=== PATIENT | male | born 1990 | race Caucasian/White ===

== ENCOUNTER 2020-11-26 16:17 | Emergency (ER) | payer OTHER, SELFPAY ==
[2020-11-26 16:44] VITALS: BP 133/69; PULSE 62; RESP 16; TEMP 36.6; O2SAT 100
--- NOTE | 2020-11-26 16:45 | ED.EXTPRO ---
HPI - Extremity Problem General Chief complaint: Extremity Problem,Nontraumatic Stated complaint: Left leg pain Time Seen by Provider: 11/26/20 16:45 Source: patient Mode of arrival: ambulatory Limitations: no limitations History of Present Illness HPI Narrative: Haroldo Smith was a 30 yo male with one bout of sciatica who comes to [facility] with complaints of left lateral thigh pain x3 days it is worsened today is 10 out of 10 when he tries to lift step up onto the exam table or lift his leg, less when he tries to bend over. Also 10 out of 10 with adduction; works as a marlon in a store. His blood pressure has been on high normal side-no diabetes, does not smoke, does not drink alcohol Related Data Allergies Allergy/AdvReac Type Severity Reaction Status Date / Time cinnamon AdvReac Vomiting Verified 11/26/20 16:41 Review of Systems Review of Systems: Narrative: CONSTITUTIONAL: Denies fever, chills, sweats. EYES: Denies visual changes, redness, discharge. ENT: Denies rhinorrhea, congestion, sore throat, otalgia. CARDIOVASCULAR: Denies chest pain, palpitations, edema. RESPIRATORY: Denies dyspnea, wheezing, cough GASTROINTESTINAL: Denies abdominal pain, nausea, vomiting, diarrhea. GENITOURINARY: Denies dysuria, hematuria, abnormal discharge SKIN: Denies rash or itching. NEUROLOGIC: Denies numbness, or focal weakness. PSYCHIATRIC: Denies anxiety or depression. Left lateral thigh pain, cannot 10 pain when steps up PMFSH Past Medical History Medical History Sciatica Family History Family History Mother Diabetes mellitus Social History Social History (Updated 11/26/20 @ 17:03 by Sue Avila CNP) Smoking status: Never smoker Alcohol intake: never Comments At time of signature, I agree with nursing past medical, surgical, social and family history. There is no relevant family history pertinent to the presenting complaint. Exam Narrative: Exam Narrative: GENERAL: This is a well-nourished, well-developed patient, in moderate distress. HEAD: normocephalic, atraumatic. EYES: Sclera clear/white. Vision is grossly intact. EARS: External ears normal,. Hearing grossly intact. NOSE: External nose normal without nasal discharge, nares without redness, no rhinorrhea. THROAT: Mucous membranes moist, NECK: Neck supple, CARDIOVASCULAR: Regular rate and rhythm without murmurs, gallops, or rubs. RESPIRATORY: Clear to auscultation. Breath sounds equal bilaterally. No wheezes, rales, or rhonchi. GASTROINTESTINAL: Abdomen soft, SKIN: warm, intact with no suspicious lesions or rash, good texture and turgor. NEURO: awake, alert, and oriented to person, place and time. There were no obvious focal neurologic abnormalities. Steady gait EXTREMITIES: Normal range of motion. Started to work 10 out of 10 pain on adduction, pain on crouching, can bend over 105 degrees, difficulty getting up and down off exam table BACK: Nontender without deformity Course Course Emergency Course: Patient works as a marlon at a grocery store. States 2 days ago pain started in his thigh has gotten to the point that he can barely move up and down, his pain is 10/10, has history of one round of sciatica Started on Toradol and baclofen at home ; given Toradol in the clinic Work release for 3 days; Follow-up with PCP Vital Signs Vital signs: Vital Signs Temperature 97.8 F 11/26/20 16:44 Pulse Rate 62 11/26/20 16:44 Respiratory Rate 16 11/26/20 16:44 Blood Pressure 133/69 11/26/20 16:44 Pulse Oximetry 100 11/26/20 16:44 Temperature 97.8 F 11/26/20 16:44 Pulse Rate 62 11/26/20 16:44 Respiratory Rate 16 11/26/20 16:44 Blood Pressure 133/69 11/26/20 16:44 Pulse Oximetry 100 11/26/20 16:44 MDM - Extremity (Nontraumatic) Differential Diagnosis Differential diagnosis: Likely lower extremity debra
[2020-11-26] MEDS: KETOROLAC (*BKC) 60 MG/2 ML VIAL IM (17:08)
== END 2020-11-26 17:28 | disposition home or self-care (01) ==
PROVIDERS: Emergency Provider Nurse Practitioner
DX: M76.32 Iliotibial band syndrome, left leg (principal)
CPT/HCPCS: 96372; 99203; G0463; J1885

== ENCOUNTER 2021-02-05 10:55 | Emergency (ER) | payer OTHER, SELFPAY ==
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
[2021-02-05 11:13] VITALS: BP 119/57; PULSE 57; RESP 16; TEMP 36.6; O2SAT 100
[2021-02-05] MEDS: LIDOCAINE HCL 1% LOCAL INJ 20 ML VIAL 5 ML INFILTRATE (11:16)
[2021-02-05] MEDS: TETANUS,DIPHTHERIA,AC PERTUSSIS ADULT (0.5 ML) BOOSTRIX IM (11:17)
== END 2021-02-05 11:31 | disposition home or self-care (01) ==
PROVIDERS: Emergency Provider Nurse Practitioner
DX: S61.412A Laceration without foreign body of left hand, initial encounter (principal); W26.0XXA Contact with knife, initial encounter; Z23 Encounter for immunization
CPT/HCPCS: 12001; 90471; 90715; 99213; G0463

== ENCOUNTER 2021-06-05 08:23 | Emergency (ER) | payer OTHER, SELFPAY ==
[2021-06-05 08:31] VITALS: BP 116/69; PULSE 57; RESP 16; TEMP 36.1; O2SAT 99
--- NOTE | 2021-06-05 08:44 | ED.URI ---
HPI - URI/Sore Throat General Chief Complaint: Upper Respiratory Infection Stated Complaint: Cough,Sore Throat History of Present Illness HPI Narrative: The patient, a non-smoker/occasional drinker, presents with sore throat. Patient states , who is double vaccinated, that he has sore throat associated with mild nasal congestion for a shorter period of about 1 day. No fever, sore throat, loss of taste/smell, earache, CP, wheezing, S OB, vomiting/diarrhea. Symptoms are mild unrelieved OTC preparations like Motrin, he attributes onset to family members/roommates who are similarly ill Related Data Allergies Allergy/AdvReac Type Severity Reaction Status Date / Time cinnamon AdvReac Vomiting Verified 06/05/21 08:27 Review of Systems Review of Systems: Narrative: General/Constitutional: No weight loss,fever Eyes: N0: Redness,discharge Ears/Nose/Throat: No: Epistaxis,ear discharge Respiratory: Denies: Hemoptysis Gastrointestinal: No Vomiting, Bleeding-rectal Skin: No Lumps, eruption Neurologic: No Focal Weakness,Sz Hematologic: Denies: Petechiae/Purpura Psychiatric: No: Suicida ideationl All Other Systems: Reviewed and Negative PMFSH Past Medical History Medical History Sciatica Family History Family History Mother Diabetes mellitus Social History Social History Smoking status: Never smoker Alcohol intake: never Comments At time of signature, agree with nursing past medical, surgical, social and family history. There is no relevant family history pertinent to the presenting complaint Exam Narrative: Exam Narrative: General Appearance: Well appearing, Well nourished EYE: PERRLA, Conjunctiva clear Ears: Auditory canal normal, TM normal Nose: Rhinorrhea, Mucousal erythema Mouth/Throat: MM moist, Uvula midline, Pharyngeal erythema Neck: Supple, No adenopathy Respiratory: No respiratory distress, Breath sounds equal, Clear to auscultation Cardiovascular: RRR, No JVD Musculoskeletal: Non tender, Normal strength Skin: Warm, Dry Neurological: A&O x3, CN II-XII intact Psychiatric: Normal mood, Normal affect Course Vital Signs Vital signs: Vital Signs Temperature 96.9 F L 07/19/21 08:31 Pulse Rate 57 L 06/05/21 08:31 Respiratory Rate 16 06/05/21 08:31 Blood Pressure 116/69 06/05/21 08:31 Pulse Oximetry 99 06/05/21 08:31 Temperature 96.9 F L 06/05/21 08:31 Pulse Rate 57 L 06/05/21 08:31 Respiratory Rate 16 06/05/21 08:31 Blood Pressure 116/69 06/05/21 08:31 Pulse Oximetry 99 06/05/21 08:31 Discharge Plan Discharge Clinical Impression: Odynophagia, Sore throat Patient Disposition: Home, Self-Care Condition: Stable Instructions: Antibiotic Form, Pharyngitis (ED) Prescriptions: New azithromycin 250 mg tablet See Rx Instructions .ROUTE .COMPLEX Qty: 6 RF: 0 lidocaine HCl [Lidocaine Viscous] 2 % solution 5 ml MUCOUS MEM QID PRN (Reason: pain) Qty: 100 RF: 0 azelastine 137 mcg (0.1 %) aerosol,spray 137 mcg NASAL Q12H Qty: 30 RF: 0 Other Ambulatory Orders: SARS-CoV-2 RNA, Qual RT-PCR (Routine) Location: Determined by Patient Ordered By: Hank Figueroa Follow-up/Referrals: PHYSICIAN NOT ON STAFF,NONSTAFF [Primary Care Provider] - Stand Alone Forms: Work/School Release IP
== END 2021-06-05 08:57 | disposition home or self-care (01) ==
PROVIDERS: Emergency Provider Emergency Medicine
DX: J02.9 Acute pharyngitis, unspecified (principal); R13.10 Dysphagia, unspecified
CPT/HCPCS: 99213; G0463

== ENCOUNTER → 2021-06-06 06:32 | Outpatient (CLI) | payer OTHER, SELFPAY ==
[2021-06-06 17:52] LABS: SARS-CoV-2 RNA PCR Negative
== END ==
PROVIDERS: Visit Provider Emergency Medicine
DX: J02.9 Acute pharyngitis, unspecified (principal); Z20.822 Contact with and (suspected) exposure to COVID-19
CPT/HCPCS: C9803; U0003; U0005

== ENCOUNTER 2024-03-11 08:34 | Outpatient (RCR) | payer OTHER, SELFPAY ==
--- NOTE | 2024-03-11 11:39 | OPREHPOC ---
Outpatient Therapy Plan of Care This is a Multidisciplinary Plan of Care that may contain components documented by all disciplines (PT, OT, and ST.) PT Problem 1 PT Problem #1 Knowledge Deficit PT Goal 1 Goal *indep with HEP Target Visit 6 PT Problem 2 PT Problem #2 Pain PT Goal 1 Goal 1* pt report pain rating of 3/10 at worst 2* self assessment LE functional scale of 14% limitation in activity level Target Visit 6 PT Problem 3 PT Problem #3 Impaired Strength PT Goal 1 Goal increase strength of R LE, to improve mobility skills: 1* up/down 12 steps without report of sharp pain 2* single leg standing x 12 seconds with good stability 3* R only leg press 80# x 10 reps Target Visit 6 PT Problem 4 PT Problem #4 Impaired Flexibility PT Goal 1 Goal increase flexibility of R hamstring, to improve balance R/L 1*supine SLR 55' Target Visit 6
--- NOTE | 2024-03-11 11:39 | PTOPEVAL1 ---
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 Activity: indep with all home and self care tasks currently is not working-- between jobs; does not do any regular fitness activity. Reported Pain Level Pain Score Self Report Additional Pain Score Comments pain range in the past week of 1-7/10; sharp and stabbing over distal patella; feels his R knee is weaker, tighter, and not as strong as his L leg. pain increase; on stairs pain decrease: over the counter meds and rest; wears compression sleeve PRN; has not been using heat/ice- instruct on PRN use 10-15 min; sleeping is OK; walking hurts his knee, but can keep walking, knee pain does not stop him from walking that he needs to do; Assessment PT Clinical Summary Haroldo has the diagnosis of R knee pain, with gradual onset of pain. LE functional scale rating of 23% limitation in activity. Stairs are the most painful activity for him. Reports feelings of R knee-- tighter and weaker than L knee. With the evaluation: L knee flexion/extension and hip motions are WNL, except hamstring tighter on R than L; weakness of R LE with comparison to L with leg press, single leg standing and mat exercises control of leg; no tenderness with palpation over knee; testing negative; no crepitus of knee and good patellar tracking. Skilled PT services for modalities PRN for pain control, therapeutic exercises to increase strength of R hip/knee and increase hamstring length, with education for HEP and pain control. Plan of Care Interventions Electrical Stimulation,Hot Pack/Cold Pack,Manual Therap
--- NOTE | 2024-03-24 08:35 | PCPTNOTE ---
Pt NS visit today, called and left message for pt of next appt day and time.
--- NOTE | 2024-03-26 08:48 | PCPTNOTE ---
Pt NS visit again today (#2), LM message of next appt. day and time.
--- NOTE | 2024-04-02 13:09 | PCPTNOTE ---
Patient no show for today's appt. Contacted patient and is aware he will be d/c'd, stated his scehdule had suddenly changed.
--- NOTE | 2024-04-06 10:35 | PTOPDC ---
Assessment and note entered by Klaudia Tucker, PT Discharge Information Assessment Status Discharge - Pt Not Present Diagnosis R knee pain Onset about 1 year ago Subjective Information pt was not seen this date Assessment PT Clinical Summary Haroldo received the PT evaluation on March 11, then he did not show for 4 appointments. Discharge PT services. The goals were not addressed. Plan of Care PT Services Indicated No
--- NOTE | 2024-04-06 10:36 | PCPTNOTE ---
pt did not show for today's reevaluation appt.
== END 2024-04-06 11:21 | disposition home or self-care (01) ==
LOC: ANHPT 08:34
PROVIDERS: PCP Physician Assistant; Visit Provider Physician Assistant
DX: M25.561 Pain in right knee (principal)
CPT/HCPCS: 97110; 97161; 99199

== ENCOUNTER 2024-03-13 08:34 | Outpatient (CLI) | payer OTHER, SELFPAY ==
--- NOTE | 2024-03-24 14:54 | WPDSLEEPSTUD ---
Sleep Study Date of Study: 03/13/24 Ordering Provider: Patricia Prado, IRINA Interpreting Physician: Jessi Ny DO Sleep Study Type: Polysomnogram Height: 1.88 m Weight: 108.862 kg Body Mass Index: 30.8 Neck Circumference (inches): 16 Elysian: 13 Reason for Sleep Study Loud snoring Sleep History The patient is a 33 year male with seasonal allergies that had a sleep study his primary care for evaluation of sleep apnea. The patient rarely awakens from sleep short of breath. He rarely awakens at night with heartburn, belching or cough. He constantly snores and it is frequently loud enough that others complain. He occasionally has trouble sleeping when he has a cold. He rarely wakes up gasping for air throughout the night. He rarely has breathing problems at night observed by himself or others. He rarely sweats excessively at night. He rarely has heart palpitations or irregular heartbeats during the night. He occasionally falls asleep during the day but rarely falls asleep while driving. He denies sleep paralysis, cataplexy and hypnagogic / hypnopompic hallucinations. He rarely has trouble at school or work due to sleepiness. He denies feeling afraid of going to sleep. He occasionally has nightmares. He rarely remembers his dreams. He occasionally has thoughts racing through his mind. He rarely feels sad or depressed. He occasionally has anxiety. He occasionally has muscular tension. He occasionally notices parts of his body jerk. He rarely kicks during the night. He occasionally has crawling and aching feelings in his legs but rarely has leg pain during the night. He denies grinding his teeth during sleep and denies awakening with morning jaw pain. He is frequently bothered by pain during the day but rarely awakened by pain during the night. He occasionally wakes up feeling stiff in morning. He occasionally wakes up with sore or achy muscles. He occasionally wakes up with pain in the neck, spine and other joints. He goes to bed between 9-10 p.m. on both weekdays and weekends. It takes him 30 minutes to fall asleep. He wakes up 2-4 times throughout the night to urinate and check his phone. He is able to fall back asleep within a few minutes. He wakes up between 5-6 a.m. on both weekdays and weekends. He typically gets 6-7 hours of sleep per night. He will stay in bed for a few minutes after waking up the morning. He currently lives with his and baby. He denies consuming any caffeinated beverages within 2 hours of bedtime. He denies engaging in physical exercise before bedtime. He will read watch television before falling asleep. He will take naps in the afternoon or the evening and they are refreshing. He consumes 2-3 caffeinated beverages per day. He denies tobacco, and recreational drug use. [facility]LY [facility] Past Medical History Medical History Sciatica Family History Family History Mother Diabetes mellitus Social History Social History Smoking status: Never smoker Alcohol intake: never Medications Home Medications Medication Instructions Recorded Confirmed Type azelastine 137 mcg (0.1 %) nasal 137 mcg (0.137 mL) intranasal Q12H 06/05/21 Rx spray aerosol #30 mL azithromycin 250 mg tablet See Rx Instructions PO .COMPLEX #6 06/05/21 Rx tabs lidocaine HCl 2 % mucosal solution 5 ml mucous membrane QID PRN pain 06/05/21 Rx (Lidocaine Viscous) #100 mL Sleep Procedure A full night polysomnogram using the [employer] SleepAmind multi-channel system recorded the standard physiologic parameters including EEG, EOG, submentalis EMG, anterior tibialis EMG, EKG, body position, nasal and oral airflow using nasal pressure sensor and thermistor.? Respiratory parameters of chest and abdominal movements were recorded with Resp
[2024-03-24 14:55] VITALS: BMI 30.8
== END 2024-03-14 07:01 | disposition home or self-care (01) ==
LOC: ANHCSM 08:36
PROVIDERS: PCP Physician Assistant; Visit Provider Physician Assistant
DX: G47.19 Other hypersomnia (principal); G47.33 Obstructive sleep apnea (adult) (pediatric)
CPT/HCPCS: 95810